=== PATIENT | female | born 1990 | race Two or more races ===

== ENCOUNTER 2023-01-01 16:02 | Outpatient (CLI) | payer OTHER ==
[~2023-01-01 16:02] MED LIST: Mylicon 125MG PO; Ultracet Tablet PO
== END 2023-01-01 16:57 | disposition home or self-care (01) ==
LOC: PRENATAL 16:02
PROVIDERS: ATTEND Obstetrics & Gynecology Maternal & Fetal Medicine
DX: O35.9XX0 Maternal care for (suspected) fetal abnormality and damage, unspecified, not applicable or unspecified (principal); O35.3XX0 Maternal care for (suspected) damage to fetus from viral disease in mother, not applicable or unspecified; O34.10 Maternal care for benign tumor of corpus uteri, unspecified trimester; Z3A.20 20 weeks gestation of pregnancy